=== PATIENT | male | born 1965 | race American Indian/Alaskan Native ===

== ENCOUNTER 2019-03-24 08:44 | Outpatient (CLI) | payer OTHER ==
[2019-03-24] MEDS ORDERED: PROVENTIL IH ONE (10:15)
--- NOTE | 2019-03-24 11:14 | XRay Report ---
RIGHT SHOULDER, 3 VIEWS INDICATION: RIGHT SHOULDER PAIN. COMPARISON: None. IMPRESSION: Normal bone mineralization. 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 No evidence for fracture, dislocation, ligamentous injury or b one lesion. The soft tissues are unremarkable. Signer Name: Julien Long Jr, MD Signed: 03/24/2019 11:10 AM Workstation Name: [id number]
== END 2019-03-24 08:45 | disposition home or self-care (01) ==
LOC: PF 08:44
PROVIDERS: ATTEND Internal Medicine
DX: M19.011 Primary osteoarthritis, right shoulder (principal); Z87.891 Personal history of nicotine dependence
CPT/HCPCS: 94060; 94640; 94729